=== PATIENT | male | born 1955 | race Caucasian/White ===

== ENCOUNTER 2023-04-11 04:05 | Inpatient (IN) | payer OTHER ==
[2023-04-11] VITALS (9 sets, daily range): BP systolic 91–124; BP diastolic 56–82; PULSE 56–84; RESP 14–20; TEMP 97.9–98.8; O2SAT 92–100
[~2023-04-11 04:05] MED LIST: FURO1TAB31 PO; LISI20TA56 PO; METH10CA5 PO; PRO20T PO; TAMS-35 PO
[2023-04-11] MEDS ORDERED: ONDANSETRON HCL 4 MG/2 ML VIAL IV PRN (06:00)
[2023-04-11] MEDS ORDERED: ACETAMINOPHEN 325 MG TAB PO PRN (06:00)
[2023-04-11] MEDS ORDERED: hydrALAZINE HCL 10 MG TAB PO PRN (06:00)
[2023-04-11] MEDS: CLINDAMYCIN 600MG IV 50 ML IV SCH ×3 (07:02→22:19)
[2023-04-11 07:59] LABS: Anion Gap 7.5 (5-15); Calcium 8.5 mg/dL (8.7-10.4); Carbon Dioxide 27.5 mmol/L (20-30); Chloride 105 mmol/L (98-107); Potassium 3.9 mmol/L (3.5-5.1); Sodium 140 mmol/L (136-145)
[2023-04-11 08:03] LABS: Creatine Kinase IFCC 56 U/L (46-171)
[2023-04-11 08:05] LABS: BUN/Creatinine Ratio 12.3 (10.0-20.0); Blood Urea Nitrogen 28 mg/dL (9-23); Glucose 93 mg/dL (74-106)
[2023-04-11 08:07] LABS: Phosphorus 4.1 mg/dL (2.4-5.1)
[2023-04-11] MEDS: APIXABAN 5 MG TAB PO SCH ×2 (10:06→22:19)
[2023-04-11] MEDS ORDERED: SODIUM CHLORIDE 0.9% 1,000 ML IV ONE (14:15)
[2023-04-12 04:56] VITALS: BP 105/54; PULSE 86; RESP 14; TEMP 98; O2SAT 94
[2023-04-12] MEDS: CLINDAMYCIN 600MG IV 50 ML IV SCH ×2 (06:16→14:15)
[2023-04-12 06:41] LABS: Anion Gap 7.1 (5-15); Carbon Dioxide 24.9 mmol/L (20-30); Chloride 109 mmol/L (98-107); Potassium 4.2 mmol/L (3.5-5.1); Sodium 141 mmol/L (136-145)
[2023-04-12 06:42] LABS: Calcium 8.3 mg/dL (8.5-10.1)
[2023-04-12 06:47] LABS: BUN/Creatinine Ratio 23.2 (10.0-20.0); Blood Urea Nitrogen 33 mg/dL (9-23); Glucose 96 mg/dL (74-106)
[2023-04-12 06:53] LABS: Basophils # (auto) 0.1 10 ^3/uL (0-0.2); Basophils % (auto) 1.1 % (0.0-2.0); Eosinophils # (auto) 0.6 10 ^3/uL (0-0.8); Eosinophils % (auto) 7.3 % (0.0-7.0); Hematocrit 37.2 % (41.0-53.0); Hemoglobin 12.3 g/dL (13.5-17.5); Lymphocytes # (auto) 1.6 10 ^3/uL (0.4-5.4); Lymphocytes % (auto) 21.3 % (10.0-50.0); Mean Corpuscular Hemoglobin 29.7 pg (28.0-32.0); Mean Corpuscular Hgb Conc. 33.1 g/dL (32.0-36.0); Mean Corpuscular Volume 89.6 fL (80.0-100.0); Monocytes # (auto) 0.7 10 ^3/uL (0-1.3); Monocytes % (auto) 9.7 % (0.0-12.0); Neutrophils # (auto) 4.7 10 ^3/uL (1.6-8.6); Neutrophils % (auto) 60.6 % (37.0-80.0); Red Blood Cells 4.16 10^6/uL (4.5-5.90); Red Cell Distribution Width 14.3 % (11.8-14.3); White Blood Cell 7.7 10^3/uL (4.4-10.8)
[2023-04-12 08:00] VITALS: PULSE 63
[2023-04-12 09:00] VITALS: BP 121/73; PULSE 79; RESP 20; TEMP 98.8; O2SAT 95
[2023-04-12] MEDS: APIXABAN 5 MG TAB PO SCH (10:09)
[2023-04-12 13:00] VITALS: BP 118/94; PULSE 69; RESP 19; TEMP 98; O2SAT 95
[2023-04-12 16:50] VITALS: BP 146/86; PULSE 99; RESP 21; TEMP 97.7; O2SAT 97
[2023-04-15] MEDS ORDERED: APIXABAN 5 MG TAB PO SCH (10:00)
== END 2023-04-12 17:25 | disposition home or self-care (01) | DRG 917 ==
LOC: TELE-WESTW 04:05
PROVIDERS: ADMIT Nurse Practitioner Family; ATTEND Internal Medicine
DX: T43.651A Poisoning by methamphetamines accidental (unintentional), initial encounter (principal); G92.8 Other toxic encephalopathy; N17.0 Acute kidney failure with tubular necrosis; L03.119 Cellulitis of unspecified part of limb; I82.402 Acute embolism and thrombosis of unspecified deep veins of left lower extremity; I13.0 Hypertensive heart and chronic kidney disease with heart failure and stage 1 through stage 4 chronic kidney disease, or unspecified chronic kidney disease; E87.6 Hypokalemia; N40.0 Benign prostatic hyperplasia without lower urinary tract symptoms; N18.9 Chronic kidney disease, unspecified; I50.9 Heart failure, unspecified; W18.39XA Other fall on same level, initial encounter; F15.90 Other stimulant use, unspecified, uncomplicated; Z86.718 Personal history of other venous thrombosis and embolism; Z80.8 Family history of malignant neoplasm of other organs or systems; Z80.0 Family history of malignant neoplasm of digestive organs; Z79.01 Long term (current) use of anticoagulants; Z80.1 Family history of malignant neoplasm of trachea, bronchus and lung; I25.2 Old myocardial infarction; Y93.89 Activity, other specified; Y92.89 Other specified places as the place of occurrence of the external cause; Y99.8 Other external cause status
CPT/HCPCS: 36415; 76775; 80048; 82550; 83735; 84100; 85025; 87040; 87081; 93306; 97163; G0378; J3490